=== PATIENT | female | born 1995 | race Two or more races ===

== ENCOUNTER → 2016-10-25 | Outpatient (CLI) | payer OTHER | END | disposition disaster alternative care site (69) | LOC: LKCL 17:20 | DX: F32.0 Major depressive disorder, single episode, mild (principal); R94.6 Abnormal results of thyroid function studies ==

== ENCOUNTER → 2016-11-07 | Outpatient (CLI) | payer OTHER | END | disposition disaster alternative care site (69) | LOC: GRAD 09:11 | DX: E05.90 Thyrotoxicosis, unspecified without thyrotoxic crisis or storm (principal); R93.8 Abnormal findings on diagnostic imaging of other specified body structures | CPT/HCPCS: A9516 ==

== ENCOUNTER 2016-12-07 07:38 | Emergency (ER) | payer OTHER ==
--- NOTE | ~2016-12-07 | ER ---
[facility] AGE[facility] 21 Y [address] ROOM: [place] [address] LOCATION: [facility] ADMIT DATE: 12/07/2016 ER/Outpatient Report DISCHARGE DATE: 12/07/2016 FAMILY PHYSICIAN: Shikha Leroy MD ATTENDING PHYSICIAN: Trena Jason Time of Arrival: 0738 hours. Time Seen: 0803 hours. IDENTIFICATION: 21-year-old female. CHIEF COMPLAINT: Right ankle injury. HISTORY OF PRESENT ILLNESS: The patient states last night she was damping and dancing around. Next thing she knew she was on the floor and heard a popping sound in her right ankle. She has been able to bear weight. She tried to go to work today, but has increase in pain and swelling. ALLERGIES: NO KNOWN DRUG ALLERGIES. CURRENT MEDICATIONS: 1. Zoloft 100 mg daily. 2. Metoprolol 25 mg daily. 3. Nexplanon implant for 1 year. MEDICAL PROBLEMS: Hyperthyroidism, she is supposed to be started on methimazole but has not started it yet. Depression. PRIOR SURGERIES: Left hip surgery. SOCIAL HISTORY: The patient lives here in [place]. She works as a med aid. Tobacco use, denies. Alcohol use, occasional. Drug use, denies. REVIEW OF SYSTEMS: All systems reviewed. Last menstrual period one month ago. All systems otherwise negative. [facility]GE[facility] 21 Y [address] ROOM: [place] [address] LOCATION: [facility] ADMIT DATE: 12/07/2016 ER/Outpatient Report DISCHARGE DATE: 12/07/2016 FAMILY PHYSICIAN: Shikha Leroy MD ATTENDING PHYSICIAN: Trena Jason PHYSICAL EXAMINATION: VITAL SIGNS: Weight 92 kg, blood pressure 116/71, pulse 92, respirations 18, temperature 97.4, sats 98%. GENERAL: A 21-year-old female, in no acute distress. HEENT: She did not fall or hit her head. She has no headache. NECK: No neck pain. LUNGS: Clear to auscultation. HEART: Regular rate and rhythm. ABDOMEN: Soft, nondistended, and nontender. SKIN: [place], warm, and dry. No lesions or rashes noted. NEUROLOGIC: The patient is alert and oriented x4. Cranial nerves 2 through 12 grossly intact. Motor strength 5/5 throughout. Sensation is intact to light touch. EXTREMITIES: Left lower extremity: Full range of motion. Right lower extremity: Full range of motion, but significant swelling laterally at her ankle, tender to palpation. No ligamentous laxity. She has good distal pulses and sensation is intact. DIAGNOSTIC STUDIES: Three-view of the right ankle reveals soft tissue swelling at the lateral malleolus. No fracture or dislocation identified, pending Radiology over- read. IMPRESSION: Ankle sprain, right. PLAN: Ankle sprain handout. Ice and elevate. Boot walker. No weightbearing for 2 days. Use crutches, then weight bear as tolerated. Tylenol or Advil for pain and follow up with Dr. Blackburn or Dr. Leroy in 7 days. Follow up sooner if any problems or concerns. The patient understands and agrees, and all questions have been answered. TRENA JASON MD CAR/modl /[id number] d: 12/07/162111 t: 12/09/16 0759, OUTPATIENT REPORT
== END 2016-12-07 08:55 | disposition disaster alternative care site (69) ==
LOC: GACC 07:38
DX: S93.401A Sprain of unspecified ligament of right ankle, initial encounter (principal); E05.90 Thyrotoxicosis, unspecified without thyrotoxic crisis or storm; F32.9 Major depressive disorder, single episode, unspecified; Z79.899 Other long term (current) drug therapy; Z98.890 Other specified postprocedural states; Y93.41 Activity, dancing; Y99.8 Other external cause status